=== PATIENT | male | born 1965 ===

== ENCOUNTER 2018-06-04 12:21 | Outpatient (CLI) | payer MEDICAID, OTHER | END 2018-06-04 12:22 | disposition home or self-care (01) | LOC: C.RADH 12:21 | DX: R10.9 Unspecified abdominal pain (principal) ==

== ENCOUNTER 2018-06-06 17:37 | Emergency (ER) | payer MEDICAID ==
[2018-06-06 17:37] VITALS: BMI 25.6
[2018-06-06] MEDS ORDERED: Sodium Chloride 0.9% 1,000 ML IV ONE (17:53)
--- NOTE | 2018-06-06 18:02 | C.PDOC ---
History Of Present Illness 53 year old male presents to the ED complaining of right lower back pain that radiates to the right lower abdomen for 2 weeks. Pain has been gradually worsening over the past week. States that he was seen by PMD, given naproxen, however the pain continued. Patient then went to a clinic, an x-ray was taken and negative. Patient was sent home with a muscle relaxant, which he is taking without relief. Patient then saw his PMD again, who wrote for an outpatient ultrasound. Otherwise patient denies any nausea, vomiting, diarrhea, fever, testicular pain, hematuria, dysuria, weakness, numbness, or change in appetite. Pain does not radiate down the leg. <Minal Ventura - Last Filed: 06/06/18 18:58> History Per: Patient History/Exam Limitations: no limitations Onset/Duration Of Symptoms: Days Current Symptoms Are (Timing): Still Present Quality Of Discomfort: "Pain" <Minal Ventura - Last Filed: 06/06/18 18:58> <Carlos Johnson - Last Filed: 06/06/18 23:18> Time Seen by Provider: 06/06/18 17:47 Chief Complaint (Nursing): Back Pain Past Medical History Reviewed: Historical Data, Nursing Documentation, Vital Signs Vital Signs: Last Vital Signs Temp 98.1 F 06/06/18 17:41 Pulse 78 06/06/18 17:41 Resp 18 06/06/18 17:41 BP 134/86 06/06/18 17:41 Pulse Ox 99 06/06/18 17:41 Surgical History: No Surg Hx - [facility] Procedures INJECT/INFUSE NEC (12/09/13) Family History: States: Unknown Family Hx - Social History Hx Tobacco Use: No Hx Alcohol Use: No Hx Substance Use: No - Immunization History Hx Tetanus Toxoid Vaccination: No Hx Influenza Vaccination: No Hx Pneumococcal Vaccination: No <Minal Ventura - Last Filed: 06/06/18 18:58> Vital Signs: Last Vital Signs Temp 98.1 F 06/06/18 17:41 Pulse 78 06/06/18 19:30 Resp 20 06/06/18 19:30 BP 128/76 06/06/18 19:30 Pulse Ox 99 06/06/18 19:30 - [facility] Procedures INJECT/INFUSE NEC (12/09/13) <Carlos Johnson - Last Filed: 06/06/18 23:18> Review Of Systems Except As Marked, All Systems Reviewed And Found Negative. Constitutional: Negative for: Fever, Chills Cardiovascular: Negative for: Chest Pain Respiratory: Negative for: Shortness of Breath Gastrointestinal: Positive for: Abdominal Pain. Negative for: Nausea, Vomiting, Diarrhea Genitourinary: Negative for: Dysuria, Hematuria, Scrotal Pain Musculoskeletal: Positive for: Back Pain Neurological: Negative for: Weakness, Numbness <VenturaMinal - Last Filed: 06/06/18 18:58> Physical Exam - Physical Exam Appears: Non-toxic, No Acute Distress, Other (Appears uncomfortable) Skin: Warm, Dry, No Rash Head: Atraumatic, Normacephalic Eye(s): bilateral: Normal Inspection Oral Mucosa: Moist Neck: Normal ROM Chest: Symmetrical Cardiovascular: Rhythm Regular, No Murmur Respiratory: Normal Breath Sounds, No Rales, No Rhonchi, No Wheezing Gastrointestinal/Abdominal: Soft, Tenderness (RLQ tenderness, negative McBurneys point tenderness), No Guarding, No Rebound Back: No CVA Tenderness, No Vertebral Tenderness, Paraspinal Tenderness (Lumbosacral tenderness, right > left) Extremity: Bilateral: Atraumatic, Normal Color And Temperature, Normal ROM Neurological/Psych: Oriented x3, Normal Speech, Normal Motor, Normal Sensation, Other (Ambulatory in the ED) Gait: Steady <VenturaMinal - Last Filed: 06/06/18 18:58> ED Course And Treatment - Laboratory Results Result Diagrams: 06/06/18 18:13 06/06/18 18:13 O2 Sat by Pulse Oximetry: 99 (RA) Pulse Ox Interpretation: Normal <VenturaMinal calvillo Last Filed: 06/06/18 18:58> - Laboratory Results Result Diagrams: 06/06/18 18:13 06/06/18 18:13 Lab Results: Total Bilirubin 0.3 mg/dL (0.2-1.3) 06/06/18 18:13 AST 29 U/L (17-59) 06/06/18 18:13 ALT 22 U/L (21-72) 06/06/18 18:13 Alkaline Phosphatase 71 U/L (38-126) 06/06/18 18:13 Total Protein 7.2 g/dL (6.3-8.3) 06/06/18 18:13 Albumin 4.5 g/dL (3.5-5.0) 06/06/18 18:13 Globulin 2.7 gm/dL (2.2-3.9) 06/06/18 18:13 Albumin/Globulin Ratio 1.7 (1.0-2.1) 06/06/18 18:13 Lipase 65 U/L (23-300) 06/06/18 18:13 Urine Color Yellow (YELLOW) 06/06/18 19:08 Urine Clarity Clear (Clear) 06/06/18 19:08 Urine pH 5.0 (5.0-8.0) 06/06/18 19:08 Ur Specific [place] 1.019 (1.003-1.030) 06/06/18 19:08 Urine Protein Negative mg/dL (NEGATIVE) 06/06/18 19:08 Urine Glucose (UA) Normal mg/dL (Normal) 06/06/18 19:08 Urine Ketones Negative mg/dL (NEGATIVE) 06/06/18 19:08 Urine Blood 1+ (NEGATIVE) H 06/06/18 19:08 Urine Nitrate Negative (NEGATIVE) 06/06/18 19:08 Urine Bilirubin Negative (NEGATIVE) 06/06/18 19:08 Urine Urobilinogen Normal mg/dL (0.2-1.0) 06/06/18 19:08 Ur Leukocyte Esterase Neg Zackary/uL (Negative) 06/06/18 19:08 Urine WBC (Auto) < 1 /hpf (0-5) 06/06/18 19:08 Urine RBC (Auto) 4 /hpf (0-3) H 06/06/18 19:08 Ur Squamous Epith Cells 1 /hpf (0-5) 06/06/18 19:08 <Carlos Johnson - Last Filed: 06/06/18 23:18> Medical Decision Making Medical Decision Making: Impression: Back pain, RLQ pain Plan: - Blood work - Urinalysis - CT Abd/Pelvis without contrast - NS IV fluids infusing - 30 mg IV Toradol given for pain Labs reviewed no leukocytosis, bandemia or electrolyte abnormality Case endorsed to night staff Dr Johnson pending CT of abdomen and dispo <Minal Ventura - Last Filed: 06/06/18 18:58> Medical Decision Makin repeat abd exam non-ttp w/ out peritoneal signs no midline pain vertebral NO cauda equina signs of symptoms on reeval Endorsed to pt normal lab results as well as CT findings endorsed to f/u hernia w/ surgery, endorsed to f/u liver cyst and ileitis w/ gi and to f/u ortho for PARS L5 issue Clear for d/c home with return indicaitons and f/u <Carlos Johnson - Last Filed: 06/06/18 23:18> Disposition - Disposition Disposition Time: 18:54 - POA Present On Arrival: None <Minal Ventura - Last Filed: 06/06/18 18:58> <Carlos Johnson - Last Filed: 06/06/18 23:18> - Disposition Referrals: Keith Bowling MD [Staff Provider] - Rj Moore MD [Staff Provider] - [facility] [Outside] [employer] [facility] [Outside] [facility] [Outside] Kennedy Redamn DO [Staff Provider] - Artur Corrigan MD [Staff Provider] - Disposition: HOME/ ROUTINE Condition: STABLE Additional Instructions: YOU HAVE A LIVER CYST AND INFLAMATION IN YOUR ILEUM. FOLLOW UP WITH A GI DOCTOR YOU HAVE INGUINAL HERNIA. FOLLOW UP WITH SURGERY YOU HAVE PARS DEFECTS in YOU SPINE. SEE A BONE DOCTOR BOB HOPKINS, thank you for letting us take care of you today. Your provider was Carlos Johnson and you were treated for BACK PAIN/ABD PAIN. The emergency medical care you received today was directed at your acute symptoms. If you were prescribed any medication, please fill it and take as directed. It may take several days for your symptoms to resolve. Return to the Emergency Department if your symptoms worsen, do not improve, or if you have any other problems. Please contact your doctor or call one of the physicians/clinics you have been referred to that are listed on the Patient Visit Information form that is included in your discharge packet. Bring any paperwork you were given at discharge with you along with any medications you are taking to your follow up visit. Our treatment cannot replace ongoing medical care by a primary care provider outside of the emergency department. Thank you for allowing the [facility] team to be part of your care today. If you had an X-Ray or CT scan: A Radiologist will review the ED reading if any change in treatment is needed we will contact you. If you had a blood, urine, or wound culture: It will take several days for the results, if any change in treatment is needed we will contact you. If you had an STI test: It will take 48 hours for the results. Please call after 1 week if you have not heard back. Prescriptions: Ciprofloxacin HCl [Cipro] 500 mg PO BID 5 Days #10 tablet Famotidine [Pepcid] 20 mg PO Q12H PRN 3 Days #6 tab PRN Reason: Dyspepsia Instructions: Gastritis, Cysts in the Liver, Groin Hernia (DC), Spondylolysis (DC), Low Back Pain in Adults Forms: [employer] (Moldovan) Print Language: MALAY - Clinical Impression Clinical Impression: Low back pain, Referred lower abdominal pain - PA / CONVEYOR BELT OPERATOR / Resident Statement MD/DO has reviewed & agrees with the documentation as recorded. - Scribe Statement The provider has reviewed the documentation as recorded by the Scribquinton Ulrich All medical record entries made by the Scribe were at my direction and personally dictated by me. I have reviewed the chart and agree that the record accurately reflects my personal performance of the history, physical exam, medical decision making, and the department course for this patient. I have also personally directed, reviewed, and agree with the discharge instructions and disposition. <Minal Ventura - Last Filed: 06/06/18 18:58> Physician Patient Turnover Patient Signed Over To: Carlos Johnson Handoff Comments: P: CT, re-eval and dispo <Minal Ventura - Last Filed: 06/06/18 18:58>
[2018-06-06] MEDS ORDERED: Sodium Chloride 0.9% 1,000 ML ONE (18:04)
[2018-06-06 18:18] LABS: BASO % 0.6 % (0.0-2.0); EOS # 0.6 K/uL (0.0-0.7); EOS % 7.7 % (0.0-4.0); LYMPH # 2.4 K/uL (1.0-4.3); LYMPH % 33.9 % (20.0-40.0); MEAN CELL VOLUME 89.9 fL (80.0-94.0); MEAN CORPUSCULAR HEMOGLOBIN 30.5 pg (27.0-31.0); MEAN CORPUSCULAR HGB CONC 33.9 g/dL (33.0-37.0); MEAN PLATELET VOLUME 9.2 fL (7.2-11.7); MONO # 0.6 K/uL (0.0-0.8); MONO % 8.4 % (0.0-10.0); NEUT # 3.5 K/uL (1.8-7.0); NEUT % 49.4 % (50.0-75.0); RBC 4.92 Mil/uL (4.40-5.90); RED CELL DISTRIBUTION WIDTH 13.5 % (11.5-14.5); WHITE BLOOD COUNT 7.1 K/uL (4.8-10.8)
[2018-06-06 18:32] LABS: ALB/GLOB RATIO 1.7 (1.0-2.1); ALBUMIN 4.5 g/dL (3.5-5.0); ALT/SGPT 22 U/L (21-72); AST/SGOT 29 U/L (17-59); BLOOD UREA NITROGEN 17 mg/dL (9-20); CALCIUM 9.4 mg/dl (8.6-10.4); GFR NON-AFRICAN AMERICAN > 60; LIPASE 65 U/L (23-300)
[2018-06-06 19:20] LABS: SQUAMOUS EPITHIAL 1 /hpf (0-5); URINE BILIRUBIN NEGATIVE (NEGATIVE); URINE BLOOD 1+ (NEGATIVE); URINE CLARITY Clear (Clear); URINE COLOR Yellow (YELLOW); URINE GLUCOSE (UA) NORMAL (Normal); URINE LEUKOCYTE ESTERASE NEG Leu/uL (Negative); URINE PROTEIN NEGATIVE (NEGATIVE); URINE UROBILINOGEN NORMAL mg/dL (0.2-1.0)
[2018-06-06] MEDS ORDERED: Iohexol 350mg/ml 100 ML ONE (21:55)
[2018-06-06 23:56] VITALS: RESP 18; TEMP 98
[2018-06-06 23:58] VITALS: BP 130/72; PULSE 72; O2SAT 97
--- NOTE | 2018-06-07 13:24 | CT ---
Date of service: 06/06/2018 PROCEDURE: CT Abdomen and Pelvis with contrast HISTORY: Rt lower back pain radiates to RLQ COMPARISON: None. TECHNIQUE: Contrast dose: 100 mL of Omnipaque 350 intravenously. Radiation dose: Total exam DLP = 473.93 mGy-cm. This CT exam was performed using one or more of the following dose reduction techniques: Automated exposure control, adjustment of the mA and/or kV according to patient size, and/or use of iterative reconstruction technique. FINDINGS: LOWER THORAX: No evidence of acute pulmonary disease. LIVER: There is 1.7 x 1.1 centimeters cyst at the left liver lobe. The liver is mildly enlarged. GALLBLADDER AND BILE DUCTS: Unremarkable. PANCREAS: Unremarkable. No gross lesion or ductal dilatation. SPLEEN: Unremarkable. ADRENALS: Unremarkable. No mass. KIDNEYS AND URETERS: Unremarkable. No hydronephrosis. No solid mass. VASCULATURE: Unremarkable. No aortic aneurysm. No aortic atherosclerotic calcification or mural plaque present. BOWEL: Mild mid and distal small bowel wall thickening suspicious for enteritis. No evidence of high-grade bowel obstruction. APPENDIX: No evidence of appendicitis. PERITONEUM: Unremarkable. No free fluid. No free air. LYMPH NODES: Unremarkable. No enlarged lymph nodes. BLADDER: Mild urinary bladder wall thickening. REPRODUCTIVE: Unremarkable. BONES: There are bilateral pars interarticularis defects seen at of L5 associated with mild grade 1 anterior spondylolisthesis of L5 relative to S1. OTHER FINDINGS: None. IMPRESSION: No evidence of acute appendicitis. Suspicious for mild enteritis. Otherwise no evidence of acute pathology in the abdomen and pelvis as discussed above. Preliminary report was submitted by [facility] Radiology contains concordant findings.
== END 2018-06-06 23:56 | disposition home or self-care (01) ==
LOC: C.ER 17:37
DX: M54.5 Low back pain (principal); R10.31 Right lower quadrant pain
CPT/HCPCS: 74177; 80053; 81001; 83690; 85025; 96361; 96374; 99285; J1885; J7030; Q9967

== ENCOUNTER 2018-06-16 10:17 | Outpatient (CLI) | payer MEDICAID | END 2018-06-16 10:18 | disposition home or self-care (01) | LOC: C.PAT 10:17 | DX: D17.0 Benign lipomatous neoplasm of skin and subcutaneous tissue of head, face and neck (principal) ==

== ENCOUNTER 2018-06-18 08:15 | Day surgery (SDC) | payer MEDICAID ==
[2018-06-16 10:31] VITALS: BMI 27.4
[~2018-06-18 08:15] MED LIST: Lactated Ringer's 500 ML IV SCH
[2018-06-18 09:10] VITALS: RESP 16; TEMP 96.6
[2018-06-18] MEDS ORDERED: Lactated Ringer's 500 ML IV ONE ×2 (11:05)
[2018-06-18 11:11] VITALS: PULSE 83; O2SAT 100
[2018-06-18] MEDS ORDERED: Propofol 10 mg/ml Inj (20 ML) ONE ×2 (11:13→11:40)
[2018-06-18 12:41] VITALS: BP 126/69
== END 2018-06-18 12:49 | disposition home or self-care (01) ==
LOC: C.ENDO 08:15
PROVIDERS: ATTEND Internal Medicine Gastroenterology
DX: Z12.11 Encounter for screening for malignant neoplasm of colon (principal); D12.2 Benign neoplasm of ascending colon; D12.5 Benign neoplasm of sigmoid colon; D12.3 Benign neoplasm of transverse colon; K64.8 Other hemorrhoids
CPT/HCPCS: 45380; 88305; J2001; J2704; J7120

== ENCOUNTER 2018-06-23 07:28 | Day surgery (SDC) | payer MEDICAID ==
[2018-06-16 10:30] VITALS: BMI 27.4
[2018-06-23] MEDS ORDERED: ceFAZolin 1 gm in NS 2 GM/200 ML BAG IVPB ONE (10:50)
[2018-06-23] MEDS ORDERED: Bupivacaine 0.25% 20 ML INJ IJ ONE (10:51)
[2018-06-23] MEDS ORDERED: Lidocaine/Epinephrine 1% 1:100000 10 ML IJ ONE (10:51)
[2018-06-23] MEDS ORDERED: Midazolam 2 MG/2 ML VIAL ONE (11:04)
[2018-06-23] MEDS ORDERED: Propofol 10 mg/ml Inj (20 ML) ONE (11:05)
[2018-06-23 12:16] VITALS: RESP 18; TEMP 97.8
[2018-06-23] MEDS ORDERED: oxyCODONE 5 mg Immediate Release Tab PO ONE (12:25)
--- NOTE | 2018-06-23 12:28 | PCM.SURG1 ---
Surgeon's Initial Post Op Note - Surgeon's Notes Surgeon: Dr. Kapoor Oracle Fusion Developer: none Type of Anesthesia: IV Sedation, Local Pre-Operative Diagnosis: Lipoma of Left forehead Scalp Operative Findings: Intramuscular Lipoma Post-Operative Diagnosis: Left Sided Forehead Scalp Intramuscular Lipoma Operation Performed: Excision on Intramuscular Lipoma Specimen/Specimens Removed: Lipoma of Forehead Estimated Blood Loss: EBL {In ML}: 5 Drains Used: No Drains Post-Op Condition: Good Date of Surgery/Procedure: 06/23/18 Time of Surgery/Procedure: 12:28
[2018-06-23 14:35] VITALS: BP 128/70; PULSE 65; O2SAT 97
--- NOTE | 2018-06-24 03:34 | OP ---
PROCEDURE DATE: 06/23/2018 PREOPERATIVE DIAGNOSIS: Lipoma of the left forehead. POSTOPERATIVE DIAGNOSIS: Intramuscular lipoma of the left side of the forehead cm in size. PROCEDURES DONE: 1. Excision of the intramuscular lipoma of the left forehead. 2. Excision of the redundant skin, 2 x 1 cm in size, to prevent seroma. 3. Layered closure of the wound, 3 x 2 cm in size. ANESTHESIA: Local anesthesia with monitoring. ESTIMATED BLOOD LOSS: Around 10 mL. DRAINS: None. PATHOLOGY: Lipoma was sent to Pathology. COMPLICATIONS: None. INTRAOPERATIVE FINDINGS: The patient had a cm intramuscular lipoma of the left forehead. DESCRIPTION OF PROCEDURE: On intraoperative steps, this 53-year-old male was diagnosed with a lipoma of the left forehead, and the patient was consented for excision. He was brought to the OR and placed supine on the operating table. After monitoring for the anesthesia, the forehead was prepped and draped. Eye was protected and local anesthesia was injected and a transverse incision was made. The incision was made through the skin and subcutaneous tissue. Upper and lower flaps were created. The lipoma appeared to be deep underneath the muscles, and the muscles were excised and the lipoma was identified. The lipoma was sent off the table for the pathology. Hemostasis was achieved. Now the patient had redundant skin, and to prevent space as well as for a proper cosmetic outcome, the 2 x 1 cm of skin edges was excised and multilayered closure was done; the deep subcu with 3-0 Vicryl, superficial subcu with 3-0 Vicryl and skin with 4-0 Monocryl, and dry sterile dressing was applied. The patient tolerated the procedure well. Count of instrument and gauze was correct. There was no apparent complication. The patient was sent to the postanesthesia care unit in stable condition. Brock Kapoor MD
== END 2018-06-23 13:50 | disposition home or self-care (01) ==
LOC: C.SDS 07:28
PROVIDERS: ATTEND Surgery Surgical Critical Care
DX: D17.0 Benign lipomatous neoplasm of skin and subcutaneous tissue of head, face and neck (principal)
CPT/HCPCS: 11422; 12031; 88304; J0690

== ENCOUNTER 2018-06-24 20:14 | Emergency (ER) | payer MEDICAID ==
[2018-06-24 20:14] VITALS: BMI 27.4
[2018-06-24 20:55] VITALS: BP 157/89; PULSE 65; TEMP 97.9; O2SAT 100
--- NOTE | 2018-06-24 21:48 | C.PDOC ---
History Of Present Illness 53 year old male seen by Dr. Kapoor yesterday for cyst removal presents stating that the area around the wound site still feels numb from the anesthesia and wanted to know if that was normal. Denies fever, drainage, headache or other complaints. Time Seen by Provider: 06/24/18 21:09 Chief Complaint (Nursing): Abnormal Skin Integrity History Per: Patient History/Exam Limitations: no limitations Onset/Duration Of Symptoms: Hrs Current Symptoms Are (Timing): Still Present Recent travel outside of the [place]: No Past Medical History Reviewed: Historical Data, Nursing Documentation, Vital Signs Vital Signs: Last Vital Signs Temp 97.9 F 06/24/18 20:41 Pulse 65 06/24/18 20:41 Resp 16 06/24/18 20:41 BP 157/89 H 06/24/18 20:41 Pulse Ox 100 06/24/18 20:41 - Medical History PMH: Migraine Denies: Chronic Kidney Disease - [employer] Procedures INJECT/INFUSE NEC (12/09/13) Family History: States: Unknown Family Hx - Social History Hx Tobacco Use: No Hx Alcohol Use: No Hx Substance Use: No - Immunization History Hx Tetanus Toxoid Vaccination: No Hx Influenza Vaccination: Yes Hx Pneumococcal Vaccination: No Review Of Systems Neurological: Positive for: Numbness. Negative for: Weakness, Headache, Dizziness Physical Exam - Physical Exam Appears: Non-toxic, No Acute Distress Skin: Warm, Dry Head: Normacephalic, Other (Clean intact dressing on forehead. No surrounding erythema or induration. No facial paresis or droop.) Eye(s): bilateral: Normal Inspection Oral Mucosa: Moist Neck: Normal, No Midline Cervical Tenderness, No Paracervical Tenderness, Supple Neurological/Psych: Oriented x3, Normal Speech ED Course And Treatment O2 Sat by Pulse Oximetry: 100 (room air) Pulse Ox Interpretation: Normal Progress Note: Patient reassured that anesthesia may take some time to wear off, patient understands and agrees to follow up with surgeon or return if symptoms worsen. Disposition Counseled Patient/Family Regarding: Diagnosis, Need For Followup, Rx Given - Disposition Referrals: Kennedy Redman DO [Staff Provider] - Brock Kapoor MD [Staff Provider] - Disposition: HOME/ ROUTINE Disposition Time: 21:45 Condition: STABLE Additional Instructions: Please follow up with surgeon as scheduled return to ER if any concerns Forms: Gen Discharge Inst Slovak - Clinical Impression Clinical Impression: Visit for wound check - PA / SENIOR MILITARY ANALYST / Resident Statement MD/DO has reviewed & agrees with the documentation as recorded. - Scribe Statement The provider has reviewed the documentation as recorded by the Scribe Maykel Mason All medical record entries made by the Kristaibquinton were at my direction and personally dictated by me. I have reviewed the chart and agree that the record accurately reflects my personal performance of the history, physical exam, medical decision making, and the department course for this patient. I have also personally directed, reviewed, and agree with the discharge instructions and disposition.
[2018-06-24 22:30] VITALS: RESP 20
== END 2018-06-24 22:23 | disposition home or self-care (01) ==
LOC: C.ER 20:14
DX: Z48.01 Encounter for change or removal of surgical wound dressing (principal)